=== PATIENT | male | born 1990 | race American Indian/Alaskan Native ===

== ENCOUNTER 2020-02-06 18:43 | Emergency (ER) ==
[2020-02-06 20:28] VITALS: BP 112/67
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
== END 2020-02-06 21:00 | disposition left against medical advice (07) ==
LOC: ED 18:43